=== PATIENT | female | born 1975 | race African-American/Black ===

== ENCOUNTER 2018-03-04 09:02 | Emergency (ER) | payer OTHER ==
[~2018-03-04] VITALS: Ht 165.1 cm; Wt 94.3 kg
[2018-03-04] MEDS ORDERED: NORVASC5 MG ORAL (09:10)
[2018-03-04 09:11] VITALS: BP 113/75
--- NOTE | 2018-03-04 09:11 | NUR ---
ED Nurse Note: Pt came in due to palpitation and sternal CP since this morning. No hx of heart problems. Pt is AAO x4, ambulatory, with mild SOB. Sats 99% in room air.
[2018-03-04] MEDS: Aspirin Baby 81mg ORAL ONE ×2 (09:32→09:35)
--- NOTE | 2018-03-04 09:35 | NUR ---
ED Nurse Note: Blood collected and sent.
--- NOTE | 2018-03-04 09:36 | NUR ---
ED Nurse Note: Pt refused ASA 162mg stating she already took this medication at home. Dr Fontenot is aware.
--- NOTE | 2018-03-04 09:48 | Emergency Room Report ---
History of Present Illness General Chief Complaint: Chest Pain Source: Patient Present Illness HPI The patient states that today is her day off. She states that she was making breakfast this morning when she suddenly developed palpitations or. She states she became very anxious. She states that at that time she got sweaty and continued to have a very rapid and pounding heart rate. She states that she turned on the air conditioner thinking that would help. However, she remained sweaty, anxious and continues to have the rapid heart rate. She states she also was having chest pain at that time. She states she had a similar episode a couple months ago while she was out grocery shopping. She states that episode did not last long. However, she did follow-up with her primary care physician. She underwent some cardiac testing to include a treadmill stress test. She said her workup was normal. She denies recent illness. She denies cough or congestion. She fever or chills. She states that the symptoms have now subsided. She states the symptoms subsided once she was here in the emergency department and resting on the gurney. She states that while the EKG was being taken the symptoms had improved but she was still having them. She states that at the time of my evaluation she was completely symptom free. Allergies: Coded Allergies: No Known Allergies (Unverified , 03/04/18) Patient History Past Medical History: see triage record, HTN Social History: Denies: smoking, alcohol use, drug use Now: No Reviewed Nursing Documentation: PMH: Agreed; PSxH: Agreed Nursing Documentation-PMH Past Medical History: No History, Except For Hx Hypertension: Yes Review of Systems All Other Systems: negative except mentioned in HPI Physical Exam Vital Signs Date Time Temp Pulse Resp B/P (MAP) Pulse Ox O2 Delivery O2 Flow Rate FiO2 03/04/18 09:05 98.1 96 23 97/63 100 03/04/18 09:11 Nasal Cannula 2.0 Sp02 EP Interpretation: reviewed, normal General Appearance: no apparent distress, alert, GCS 15, non-toxic Head: normocephalic, atraumatic Eyes: bilateral eye normal inspection, bilateral eye PERRL ENT: hearing grossly normal, normal pharynx, no angioedema, normal voice Neck: full range of motion, supple/symm/no masses Respiratory: chest non-tender, lungs clear, normal breath sounds, no respiratory distress, no retraction, no accessory muscle use, speaking full sentences Cardiovascular #1: regular rate, rhythm, no edema Gastrointestinal: normal bowel sounds, non tender, soft, non-distended, no guarding, no rebound Rectal: deferred Musculoskeletal: back normal, gait/station normal, normal range of motion, non- tender Neurologic: alert, oriented x3, responsive, motor strength/tone normal, sensory intact, speech normal Psychiatric: judgement/insight normal, memory normal, mood/affect normal, no suicidal/homicidal ideation Skin: normal color, no rash, warm/dry, well hydrated Medical Decision Making Diagnostic Impression: Primary Impression: Palpitations ER Course Likely this patient has an intermittent SVT. The symptoms have not been captured on telemetry at this time. The patient in the emergency department had normal sinus rhythm during her entire ED course. She also is asymptomatic. I suspect she has an SVT or reentrant tachycardia of some sort. The patient EKG is reassuring without evidence of preexcitation. I did discuss this case with Dr. Walker in cardiology. He did review the EKG and agrees that there is no evidence of pre-excitation. Overall, the patient is nontoxic in well- appearing and asymptomatic at this time. The patient's initial troponin was within normal limits at 0.019. I did do a repeat troponin and this was higher at 0.03. I did offer the patient admission to [place]. The patient has a child and she preferred to not be admitted, despite my recommendation. I felt that I should obtain a true 6 hour troponin which was pending at the time of this documentation. The patient was turned over to the oncoming physician, Dr. Myers pending 3rd troponin and further discussion and decision making with the patient. If the troponin is trending up, I would recommend admission for further monitoring by cardiology. I did express this to the patient explicitly that she could be having an arrhythmia that could be causing a demand ischemia. She indicated understanding. Laboratory Tests Test 03/04/18 09:28 03/04/18 10:00 03/04/18 11:13 White Blood Count 3.8 K/UL (4.8-10.8) L Red Blood Count 5.48 M/UL (4.20-5.40) H Hemoglobin 14.6 G/DL (12.0-16.0) Hematocrit 46.5 % (37.0-47.0) Mean Corpuscular Volume 85 FL (80-99) Mean Corpuscular Hemoglobin 26.6 PG (27.0-31.0) L Mean Corpuscular Hemoglobin Concent 31.3 G/DL (32.0-36.0) L Red Cell Distribution Width 13.4 % (11.6-14.8) Platelet Count 185 K/UL (150-450) Mean Platelet Volume 9.7 FL (6.5-10.1) Neutrophils (%) (Auto) 49.3 % (45.0-75.0) Lymphocytes (%) (Auto) 41.5 % (20.0-45.0) Monocytes (%) (Auto) 6.2 % (1.0-10.0) Eosinophils (%) (Auto) 1.3 % (0.0-3.0) Basophils (%) (Auto) 1.7 % (0.0-2.0) Sodium Level 143 MMOL/L (136-145) Potassium Level 3.5 MMOL/L (3.5-5.1) Chloride Level 106 MMOL/L (98-107) Carbon Dioxide Level 27 MMOL/L (21-32) Anion Gap 10 mmol/L (5-15) Blood Urea Nitrogen 16 mg/dL (7-18) Creatinine 0.9 MG/DL (0.55-1.30) Estimate Glomerular Filtration Rate > 60 mL/min (>60) Glucose Level 94 MG/DL (74-106) Calcium Level 9.5 MG/DL (8.5-10.1) Total Bilirubin 0.3 MG/DL (0.2-1.0) Aspartate Amino Transferase (AST) 20 U/L (15-37) Alanine Aminotransferase (ALT) 27 U/L (12-78) Alkaline Phosphatase 77 U/L (46-116) Total Creatine Kinase 255 U/L (26-308) Creatine Kinase MB 1.5 NG/ML (0.0-3.6) Creatine Kinase MB Relative Index 0.5 Troponin I 0.016 ng/mL (0.000-0.056) 0.037 ng/mL (0.000-0.056) Total Protein 7.9 G/DL (6.4-8.2) Albumin 3.7 G/DL (3.4-5.0) Globulin 4.2 g/dL Albumin/Globulin Ratio 0.9 (1.0-2.7) L Urine Color Pale yellow Urine Appearance Clear Urine pH 7 (4.5-8.0) Urine Specific Moz[place] 1.010 (1.005-1.035) Urine Protein Negative (NEGATIVE) Urine Glucose (UA) Negative (NEGATIVE) Urine Ketones Negative (NEGATIVE) Urine Blood Negative (NEGATIVE) Urine Nitrite Negative (NEGATIVE) Urine Bilirubin Negative (NEGATIVE) Urine Urobilinogen Normal MG/DL (0.0-1.0) Urine Leukocyte Esterase 1+ (NEGATIVE) H Urine RBC 0-2 /HPF (0 - 2) Urine WBC 2-4 /HPF (0 - 2) Urine Squamous Epithelial Cells Few /LPF (NONE/OCC) Urine Bacteria Few /HPF (NONE) Urine HCG, Qualitative Negative (NEGATIVE) Urine Opiates Screen Negative (NEGATIVE) Urine Barbiturates Screen Negative (NEGATIVE) Phencyclidine (PCP) Screen Negative (NEGATIVE) Urine Amphetamines Screen Negative (NEGATIVE) Urine Benzodiazepines Screen Negative (NEGATIVE) Urine Cocaine Screen Negative (NEGATIVE) Urine Marijuana (THC) Screen Negative (NEGATIVE) EKG Diagnostic Results Rate: normal Rhythm: NSR ST Segments: no acute changes Rhythm Strip Diag. Results EP Interpretation: yes Rate: 80's Rhythm: NSR, no PVC's, no ectopy Chest X-Ray Diagnostic Results Chest X-Ray Diagnostic Results : Chest X-Ray Ordered: Yes # of Views/Limited/Complete: 1 View Indication: Other Interpretation: no consolidation, no effusion, no pneumothorax, other - Poor inspiration. Difficult to assess heart size. Borderline cardiomegaly Impression: No acute disease Electronically Signed by: Cecy Fontenot DO Last Vital Signs Date Time Temp Pulse Resp B/P (MAP) Pulse Ox O2 Delivery O2 Flow Rate FiO2 03/04/18 09:11 98.1 96 23 113/75 100 Nasal Cannula 2.0 Status: improved Disposition: HOME, SELF-CARE Condition: Improved Cecy Fontenot DO Mar 04, 2018 09:48
[2018-03-04 09:56] LABS: BASOPHILS % (AUTO) 1.7 % (0.0-2.0); EOSINOPHILS % (AUTO) 1.3 % (0.0-3.0); HEMATOCRIT 46.5 % (37.0-47.0); HEMOGLOBIN 14.6 G/DL (12.0-16.0); LYMPHOCYTES % (AUTO) 41.5 % (20.0-45.0); MEAN CORPUSCULAR VOLUME 85 FL (80-99); MONOCYTES % (AUTO) 6.2 % (1.0-10.0); NEUTROPHILS % (AUTO) 49.3 % (45.0-75.0); PLATELET COUNT 185 K/UL (150-450); RED BLOOD COUNT 5.48 M/UL (4.20-5.40); RED CELL DISTRIBUTION WIDTH 13.4 % (11.6-14.8); WHITE BLOOD COUNT 3.8 K/UL (4.8-10.8)
--- NOTE | 2018-03-04 09:58 | NUR ---
ED Nurse Note: Pt ambulated back to her bed with steady gait. Attached to senior sous chef. VSS.
[2018-03-04 10:02] LABS: ANION GAP 10 mmol/L (5-15); BLOOD UREA NITROGEN 16 mg/dL (7-18); CALCIUM 9.5 MG/DL (8.5-10.1); CARBON DIOXIDE 27 MMOL/L (21-32); CHLORIDE 106 MMOL/L (98-107); CREATININE 0.9 MG/DL (0.55-1.30); POTASSIUM 3.5 MMOL/L (3.5-5.1); SODIUM 143 MMOL/L (136-145)
--- NOTE | 2018-03-04 10:03 | NUR ---
ED Nurse Note: Urine sent.
[2018-03-04 10:18] LABS: ALANINE AMINOTRANSFERASE 27 U/L (12-78); ALBUMIN 3.7 G/DL (3.4-5.0); ALBUMIN/GLOBULIN RATIO 0.9 (1.0-2.7); ALKALINE PHOSPHATASE 77 U/L (46-116); ASPARTATE AMINO TRANSFERASE 20 U/L (15-37); BILIRUBIN,TOTAL 0.3 MG/DL (0.2-1.0); CKMB 1.5 NG/ML (0.0-3.6); CREATINE KINASE 255 U/L (26-308)
--- NOTE | 2018-03-04 10:19 | Diagnostic Imaging Report ---
Indication: Shortness of breath, chest pain Technique: One view of the chest Comparison: none Findings: Suboptimal inspiration. Lungs and pleural spaces are clear. The heart is borderline enlarged Impression: Borderline cardiomegaly. No acute process
[2018-03-04 10:40] LABS: APPEARANCE,URINE CLEAR; BILIRUBIN, URINE NEGATIVE (NEGATIVE); COLOR,URINE PALE YELLOW; GLUCOSE, URINE (UA) NEGATIVE (NEGATIVE); KETONES,URINE NEGATIVE (NEGATIVE); LEUKOCYTE ESTERASE ,URINE 1+ (NEGATIVE); NITRITE,URINE NEGATIVE (NEGATIVE); PH,URINE 7 (4.5-8.0); PROTEIN,URINE NEGATIVE (NEGATIVE); UROBILINOGEN,URINE NORMAL MG/DL (0.0-1.0)
--- NOTE | 2018-03-04 11:08 | NUR ---
ED Nurse Note: Pt sleeping on bed with no distress at this time. VSS. warm blankets are given.
--- NOTE | 2018-03-04 11:14 | NUR ---
ED Nurse Note: Second troponin sent down to lab.
[2018-03-04 11:23] VITALS: BP 124/89
[2018-03-04 13:28] VITALS: BP 125/80
--- NOTE | 2018-03-04 13:28 | NUR ---
ED Nurse Note: Pt is talking in full sentences over her phone. VSS.
[2018-03-04 15:30] VITALS: BP 121/90
[2018-03-04] MEDS ORDERED: cefTRIAXone 1 GM in NS 55 ML IVPB ONE (15:45)
--- NOTE | 2018-03-04 16:01 | NUR ---
ED Nurse Note: 3rd troponin sent.
[2018-03-04 16:49] VITALS: BP 118/89
--- NOTE | 2018-03-04 16:49 | NUR ---
ED Nurse Note: Pt cleared by ER MD for discharge. ACI/prescription was given and explained to pt and verbalized understanding. All medical devices such as ID band/IV removed. Pt AAOx4, ambulates with steady gait.
--- NOTE | 2018-03-07 11:13 | Cardiology Report ---
APPROVED REPORT EKG Measurement Heart [id number] Normal sinus rhythm Normal ECG
== END 2018-03-04 16:49 | disposition home or self-care (01) ==
LOC: EMR 09:45
DX: R00.2 Palpitations (principal); I10 Essential (primary) hypertension
CPT/HCPCS: 36415; 71045; 80053; 80307; 81003; 81025; 82550; 82553; 84484; 85025; 93005; 96360; 99284